=== PATIENT | female | born 1945 | race Caucasian/White ===

== ENCOUNTER → 2024-07-08 | Outpatient (CLI) | payer MEDICARE, OTHER, SELFPAY ==
--- NOTE | 2024-07-08 11:38 | XR_ITS ---
Examination: Wrist, right 3 views Technique: Wrist AP, oblique, lateral 3 views Date and time of exam: July 08, 2024 1213 hours INDICATIONS: Patient fell 4 days ago with injury to the wrist, wrist pain. FINDINGS: Severe osteopenia Old fracture deformity distal radial metaphysis No acute fracture IMPRESSION: No acute fracture
== END | disposition home or self-care (01) ==
PROVIDERS: PCP Internal Medicine; Referring Provider Internal Medicine; Visit Provider Internal Medicine
DX: S69.91XA Unspecified injury of right wrist, hand and finger(s), initial encounter (principal); W19.XXXA Unspecified fall, initial encounter
CPT/HCPCS: 73110

== ENCOUNTER 2025-05-23 20:12 | Emergency (ER) | payer MEDICARE, OTHER, SELFPAY ==
[2025-05-23 20:20] VITALS: BP 148/78; PULSE 65; PULSE 97; RESP 16; TEMP 36.8; O2SAT 96; O2SAT 98; BMI 29.7
--- NOTE | 2025-05-23 20:21 | XR_ITS ---
Examination: Duplex scan of the lower extremity, unilateral left Date and time of exam: May 23, 2025, 2047 hours INDICATION: Left leg pain today Technique: Duplex scan of the extremity veins using B-mode/grayscale imaging and Doppler spectral analysis and color flow Attention is directed to internal echogenicity, compression and augmentation involving these veins, color flow assessment, spectral analysis Findings: Major deep venous structures in the extremity demonstrate normal course and caliber. There is no evidence of deep vein thrombosis. Normal color flow and spectral analysis Impression: Negative for DVT..
--- NOTE | 2025-05-23 20:21 | XR_ITS ---
EXAMINATION: Left femur 2 views TECHNIQUE: AP lateral left femur 2 views Date and time: May 23, 2025, 2128 hours INDICATIONS: Injury to the femur today, femur pain. FINDINGS: No hip fracture or hip dislocation Shaft of the femur are intact Total left knee arthroplasty with satisfactory AP alignment IMPRESSION: No acute femur fracture Recommend short-term follow-up as clinically warranted
--- NOTE | 2025-05-23 20:21 | XR_ITS ---
EXAMINATION: AP chest single view TECHNIQUE: AP portable semiupright chest single view Date and time: May 23, 2025, 2116 hours INDICATIONS:*Chest pain today. FINDINGS: Mild prominence left ventricle Mild vascular congestion. No pneumonia or pulmonary edema Prominent osteopenia IMPRESSION: Mild vascular congestion. No pneumonia or pulmonary edema
--- NOTE | 2025-05-23 20:21 | XR_ITS ---
Examination: Left hip AP, lateral, AP pelvis 3 views Technique: Hip AP lateral, AP pelvis, 3 views Exam date and time: May 23, 2025, 2112 hours INDICATIONS: Onset left hip pain today. FINDINGS: Severe osteopenia Moderate narrowing right and left hip joints No hip or pelvic fracture IMPRESSION: Moderate narrowing hip joints.
--- NOTE | 2025-05-23 20:22 | EKG_ITS ---
[facility] (Formerly [facility]) Test Date: 2025-05-23 Pat Name: NESOTR CANTU Department: Room: - Gender: Female Surgical Aide: : 1945 Requested By: Azul Hernandez Order Number: [id number] Reading MD: Azul Hernandez Measurements Intervals [place] Rate: 91 P: 99 WI: 181 QRS: 46 QRSD: 88 T: 78 QT: 364 QTc: 450 Interpretive Statements SINUS RHYTHM NONSPECIFIC ST & T-WAVE ABNORMALITY No previous ECG available for comparison /[id number]/S0/[id number].pdf
--- NOTE | 2025-05-23 20:23 | EDNOTE_ITS ---
Lower Extremity Injury RME/HPI General Chief Complaint: Extremity Injury, Lower Stated Complaint: LEG PAIN Time Seen by Provider: 05/23/25 20:16 Arrival date/time: 05/23/25 20:12 79-year-old female patient with past medical history of hypertension, came in for evaluation regarding left thigh pain. Patient woke up with sudden onset of left eye pain, described as sharp pain, severity severe, patient is unable to ambulate due to pain. Patient denies any fall. Denies any fever denies any other complaints no medication was taken prior to ER visit. Related Data Previous Rx's ?Medication ?Instructions ?Recorded cyclobenzaprine 5 mg tablet 5 mg PO TID #20 tabs 05/24 hydrocodone 5 mg-acetaminophen 325 1 tab PO Q8H PRN pa in #20 tabs 05/24/25 mg tablet prednisone 20 mg tablet See Taper PO QDAY 5 days #10 tabs 05/24/25 Allergies Allergy/AdvReac Type Severity Reaction Status Date / Time No Known Allergies Allergy Verified 05/23/25 20:30 Review of Systems Review of Systems Narrative Review of Systems: Review of system reviewed and within normal limits except mentioned in HPI ED Exam Narrative Physical exam: VITAL SIGNS: Reviewed. GENERAL APPEARANCE: Alert and interactive, follows commands, no acute distress, HEAD AND FACE: Non-traumatic. ENT: PERRL, pink conjunctivitis, eyelid no trauma, Mucous membrane moist. NECK: Supple, nontender, no nuchal rigidity. CHEST: No tenderness, no crepitus, no paradoxical movement, no retractions. LUNGS: Clear, well ventilated, symmetric, no rales, no wheezing, no ronchi, no stridor, good breath sounds bilaterally. HEART: Regular rate, regular rhythm, no murmur, no gallops. ABDOMEN: Soft, positive bowel sounds, nondistended, no guarding, nontender, no rebound, no masses, RECTAL: Deferred. GENITAL: Deferred. NEUROLOGICAL: Gross motor function intact sensory function intact, Appropriate for age. MUSCULOSKELETAL: low back nontender, full range of motion. EXTREMITIES: Left thigh tenderness, no deformity, severe tenderness with range of motion of the hip joint, distal neurovascular status intact SKIN: Color pink, dry, no rash, no lacerations, no abrasions, no contusions. LYMPHATICS: Deferred. Course Quality Measures none Orders Category Date Time Status CT Screening NOW Care 05/23/25 23:12 Completed EKG (ED ONLY) *Do not use* NOW Care 05/23/25 20:[address] abdomen pelvis w con Stat Exams 05/23/25 23:12 Completed EKG (ED Only) Stat Exams 05/23/25 20:22 Draft US venous doppler LE LT Stat Exams 05/23/25 20:21 Completed XR chest 1V Stat Exams 05/23/25 20:21 Completed XR femur LT 2V Stat Exams 05/23/25 20:21 Completed XR hip LT w pelvis 2-3V Stat Exams 05/23/25 20:21 Completed B-Type Natriuretic Peptide Stat Lab 05/23/25 20:49 Completed CBC Stat Lab 05/23/25 20:49 Completed Comprehensive Metabolic Panel Stat Lab 05/23/25 20:49 Completed Partial Thromboplastin Time Stat Lab 05/23/25 20:49 Completed Prothrombin Time with INR Stat Lab 05/23/25 20:49 Completed Troponin I Stat Lab 05/23/25 20:49 Completed Morphine* Inj Med 05/23/25 20:23 Discontinued 4 mg IVP X1 ONE Morphine* Inj Med 05/23/25 23:15 Discontinued 4 mg IVP X1 ONE Vital Signs Vital signs: Vital Signs Temperature 98.3 F 05/23/25 20:20 Pulse Rate 97 05/23/25 20:20 Respiratory Rate 16 05/23/25 20:20 Blood Pressure 148/78 H 05/23/25 20:20 Pulse Oximetry (%) 98 05/23/25 20:20 Oxygen Delivery Method Room Air 05/23/25 20:20 Extremity Injury, Lower MDM Narrative MDM Narrative:: 05/23/25 20:12 79-year-old female patient with past medical history of hypertension, came in for evaluation regarding left thigh pain. Patient woke up with sudden onset of left eye pain, described as sharp pain, severity severe, patient is unable to ambulate due to pain. Patient denies any fall. Denies any fever denies any other complaints no medication was taken prior to ER visit. Care transferred to Dr Kaba pending final disposition and CT scan of the abdomen Patient data External records reviewed:: None Clinical information provided by:: patient Social determinants that could affect healthcare access:: none Patient has the following chronic illnesses:: Hypertension How is presenting disease/condition affected by chronic disease/condition?: uneffected by Evaluation data The following diagnostics were reviewed and interpreted by me:: lab results and radiology exam(s) Lab and/or radiology exams considered but not ordered:: None see MDM Interpretation Summary: See MDM Medications / Prescriptions Medications or Prescriptions considered but not ordered:: None Medication administrations:: Medication Administration History Discontinued Medications Morphine Sulfate (Morphine Sulf Inj 4 Mg/Ml Vial) 4 mg IVP X1 ONE Stop: 05/23/25 20:24 Last Admin: 05/23/25 20:49 Dose: 4 mg Documented By: EF Morphine Sulfate (Morphine Sulf Inj 4 Mg/Ml Vial) 4 mg IVP X1 ONE Stop: 05/23/25 23:16 Last Admin: 05/23/25 23:57 Dose: 4 mg Documented By: CVL Morphine Consultations Consultation(s) initiated? (list below): No Diagnosis Extremity Injury, Lower Differential Diagnosis: fracture of femur and other (Sciatica,, DVT) Most likely diagnosis given after review of the tests above:: Sciatica Admission Indicated Admission indicated?: not indicated Admission Request Was there a request for admission?: No Disposition Plan Disposition Plan: other (specify) Discharge Plan Plan Patient Disposition: HOME (Self Care) Discharge Disposition comment: Stable Prescriptions/Referrals Prescriptions/Med Rec: New prednisone 20 mg tablet See Taper PO QDAY 5 Days Qty: 10 0RF Taper: Prednisone Taper 40 mg DAILY for 5 Days and 0 Hour hydrocodone-acetaminophen 5-325 mg tablet 1 tab PO Q8H MDD 3 tab PRN (Reason: pain) Qty: 20 0RF cyclobenzaprine 5 mg tablet 5 mg PO TID Qty: 20 0RF Referrals: No Primary/Family,Physician [Primary Care Provider] - In 1 week Problem List Clinical Impression: Sciatic neuralgia, Biliary obstruction Patient/Caregiver Discharge Instructions Discharge Activity: activity as tolerated Education Materials: ED Sciatica Additional Instructions: Medication as directed. Cool compresses x 24 hours and alternate with warm moist heat thereafter. Gradually increase level of activity as tolerated. Follow-up with primary care doctor for outpatient MRCP for evidence of biliary obstruction return for fever escalating abdominal pain persistent vomiting or worsening illness Print Language: Bulgarian Stand Alone Forms: Lory Award Info., Patient Portal Info Letter
[2025-05-23] MEDS: MORPHINE SULF INJ 4 MG/ML VIAL IVP ×2 (20:49→23:57)
[2025-05-23 21:07] LABS: Basophils # (Auto) 0.1 Thou/mm3 (0.0-0.2); Basophils % (Auto) 1 % (0-2.5); Eosinophils # (Auto) 0.1 Thou/mm3 (0.0-0.5); Eosinophils % (Auto) 1 % (0-10); Hematocrit 41.4 % (36.0-46.0); Hemoglobin 14.4 g/dL (12.0-16.0); Immature Granulocytes Auto 0.02 Thou/mm3 (0.00-0.00); Lymphocytes # (Auto) 0.9 Thou/mm3 (1.0-4.8); Lymphocytes % (Auto) 10 % (10-50); Mean Corpuscular HGB Conc 34.8 g/dl (31.0-37.0); Mean Corpuscular Hemoglobin 31.5 pg (25.0-35.0); Mean Corpuscular Volume 91 fL (80-100); Monocytes # (Auto) 0.6 Thou/mm3 (0.0-0.8); Monocytes % (Auto) 7 % (0-12); Neutrophils # (Auto) 7.3 Thou/mm3 (1.8-7.7); Neutrophils % (Auto) 82 % (37-80); Nucleated Red Blood Cell # 0.00 Thou/mm3 (0.00-0.00); Nucleated Red Blood Cell % 0 /100 WBC (0); Platelet Count 255 Thou/mm3 (140-440); RDW Standard Deviation 47.8 fL (36.4-46.3); Red Blood Count 4.57 Miln/mm3 (4.00-5.20); White Blood Count 9.0 Thou/mm3 (3.6-11.0)
[2025-05-23 21:19] LABS: INR 1.0 (0.9-1.3); Partial Thromboplastin Time 26.8 Seconds (22.0-36.0); Prothrombin Time 10.3 Seconds (9.0-12.2)
[2025-05-23 21:24] LABS: Alanine Aminotransferase 22 U/L (10-49); Albumin, Serum 4.8 gm/dL (3.4-4.8); Albumin/Globulin Ratio 1.7 (1.2-2.2); Alkaline Phosphatase 103 U/L (46-116); Anion Gap 12 (7-16); Aspartate Amino Transferase 49 U/L (0-34); BUN/Creatinine Ratio 9 Ratio (12-20); Bilirubin,Total 0.7 mg/dL (0.3-1.2); Blood Urea Nitrogen 9 mg/dL (9-23); Calcium 10.0 mg/dL (8.3-10.6); Calcium (Corrected) 10.0 mg/dL (8.5-10.1); Carbon Dioxide 21.8 mMol/L (20.0-31.0); Chloride 100 mMol/L (98-107); Creatinine (Component) 1.0 mg/dL (0.6-1.3); Estimated Creatinine Clearance 45.5 mL/min (>60); Globulin 2.8 gm/dL (2.3-3.5); Glucose 121 mg/dL (74-106); Osmolality,Calculated 267 (275-295); Potassium 3.8 mMol/L (3.4-5.1); Sodium 134 mMol/L (136-145); Total Protein 7.6 gm/dL (5.7-8.2); Troponin I < 0.020 ng/mL (0.0-0.045); eGFR 57 See Note
[2025-05-23 21:27] LABS: B-Type Natriuretic Peptide 90 pg/mL (0-100)
--- NOTE | 2025-05-23 23:12 | XR_ITS ---
Examination: CT abdomen with intravenous contrast CT pelvis with intravenous contrast 2-D coronal reconstructions 2-D sagittal reconstructions Date and time of exam: May 24, 2025, 0011 hours INDICATIONS: Left lower abdomen pain left hip pain thigh pain beginning 2 days ago. CTDI: vol (mGy) 15.4 DLP: (mGycm) 374 Technique: Multiple axial sections of the abdomen and pelvis have been obtained. 64 slice high-resolution scanner used. 3 mm axial sections have been obtained, post intravenous injection 60 cc [id number] 2-D sagittal, coronal reconstructions obtained. Low dose protocols were performed. One or more of the following dose reduction techniques were used; automated exposure control, adjustment of the mA and/or KV according to patient size, use of iterative reconstruction technique. Findings: Mild enlargement cardiac contour Intrahepatic biliary tract dilatation, no focal liver lesions Absent gallbladder Common bile duct is enlarged, 12 mm no definite stones No pancreatic mass Spleen is not enlarged Normal adrenal glands Significant renal scarring, no hydronephrosis Aortic calcification no aneurysmal dilatation Normal appendix No bowel obstruction Mildly distended urinary bladder Absent uterus Moderate osteopenia IMPRESSION: Intra and extrahepatic biliary tract dilatation, common bile duct 12 mm Consider MRCP follow-up to exclude common bile duct stones and/or stricture
--- NOTE | 2025-05-24 00:05 | PD.EDADDENDU ---
Emergency Room Addendum Addendum Narrative: 2300: Care assumed from Azul Hernandez NP, (emergency mid-level provider). Past medical, surgical, social and family history reviewed. Vitals and home medications reviewed. Results and treatment plan discussed. I will assume the care of the patient at this time and will follow the patient, pending abdomen/pelvis CT. The following addendum documentation note is intended to reflect any pending information, findings, or radiology results not included in the patient?s initial chart by the previous shift scribe. RADIOLOGY Abdomen/Pelvis CT: Findings: The lung bases are clear. A small hiatal hernia is present. There is a cyst in the right lobe of the liver, measuring 1.1 cm.The gallbladder is surgically absent. The common bile duct is dilated, measuring 1.1 cm in caliber. The pancreas, spleen, kidneys and adrenals are unremarkable. No evidence of bowel obstruction. Post operative changes are noted in the stomach.The appendix is within normal limits. The urinary bladder is unremarkable. There is no free fluid or free air. There is no adenopathy. The osseous structures are unremarkable. Impression: No evidence of renal/ureteric calculus or hydroureteronephrosis. Status post cholecystectomy. Dilated common bile duct with prominent intrahepatic biliary ducts. Recommend clinical correlation and further evaluation with MRCP , as indicated. 03:44 - Assumed care of this pleasant 79 y/o female sudden onset anterolateral thigh pain occasional extends to ischial tuberosity and SI joint. No lower back pain reported. Denies motor weakness in involved extremity or cool sensation of the foot. Patient underwent an extensive work-up including routine x-rays of the hip demonstrating arthritic changes and severe osteopenia. Additionally venous doppler was performed and noted to be negative. CT scan obtained which demonstrates extrahepatic dilatation s/p cholecystectomy, MRCP recommended. In the absence of abdominal pain, vomiting, and elevation of LFT's, will likely treat for sciatica with short course of steroids, muscle relaxants, and pain medication, will advise patient to F/U for non-emergent outpatient MRCP. Final diagnosis is sciatica.
--- NOTE | 2025-05-24 01:58 | PRELIM_ITS ---
CT scan of the abdomen and pelvis with intravenous contrast (axial sections with sagittal and coronal reformats) May 24, 2025 0009 hours Clinical History: Left lower abdominal pain, thigh pain Reference is made to the prior report dated November 23, 2009. Findings: The lung bases are clear. A small hiatal hernia is present. There is a cyst in the right lobe of the liver, measuring 1.1 cm.The gallbladder is surgically absent. The common bile duct is dilated, measuring 1.1 cm in caliber. The pancreas, spleen, kidneys and adrenals are unremarkable. No evidence of bowel obstruction. Post operative changes are noted in the stomach.The appendix is within normal limits. The urinary bladder is unremarkable. There is no free fluid or free air. There is no adenopathy. The osseous structures are unremarkable. Impression: No evidence of renal/ureteric calculus or hydroureteronephrosis. Status post cholecystectomy. Dilated common bile duct with prominent intrahepatic biliary ducts. Recommend clinical correlation and further evaluation with MRCP , as indicated. Report Electronically Signed By: Reagan Bernardo 05/24/2025 1:58:06 AM [EST]
[2025-05-24 04:37] VITALS: RESP 14
== END 2025-05-24 04:39 | disposition home or self-care (01) ==
PROVIDERS: Nurse Practitioner Family; Emergency Provider Emergency Medicine
DX: M54.30 Sciatica, unspecified side (principal); I10 Essential (primary) hypertension; K83.1 Obstruction of bile duct; M79.2 Neuralgia and neuritis, unspecified; Z90.49 Acquired absence of other specified parts of digestive tract
CPT/HCPCS: 36415; 71045; 73502; 73552; 74177; 80053; 81001; 83880; 84484; 85025; 85610; 85730; 93005; 93971; 96374; 96376; 99283; A4649; J2270; Q9967